=== PATIENT | female | born 1955 ===

== ENCOUNTER 2017-05-20 15:55 | Emergency (ER) | payer MEDICARE, MEDICAID ==
[2017-05-20 15:55] VITALS: BMI 37.6
[2017-05-20 16:10] VITALS: BP 94/62; PULSE 80; RESP 18; TEMP 97.8; O2SAT 97
--- NOTE | 2017-05-20 16:57 | C.PDOC ---
History Of Present Illness 61 year old female, whose PMHx includes HTN, Hyperlipidemia, Arthritis, Osteopenia and Gout, presents to the ED for evaluation of sore throat which began last evening. She notes her pain is constant and worse when swallowing. Patient admits to positive sick contact with her sister, who also had similar symptoms. Patient denies fever, chills, runny nose, sneezing, cough, itchy eyes , chest pain, shortness of breath, URI symptoms at this time. Time Seen by Provider: 05/20/17 16:14 Chief Complaint (Nursing): ENT Problem History Per: Patient History/Exam Limitations: no limitations Onset/Duration Of Symptoms: Hrs Current Symptoms Are (Timing): Still Present Location Of Pain: Throat Sick Contacts (Context): Family Member(s) (sister ) Associated Symptoms: Sore Throat. denies: Fever, Chills, Cough, Nasal Congestion Additional History Per: Patient Past Medical History Reviewed: Historical Data, Nursing Documentation, Vital Signs Vital Signs: Last Vital Signs Temp 97.8 F 05/20/17 16:08 Pulse 80 05/20/17 16:08 Resp 18 05/20/17 16:08 BP 94/62 L 05/20/17 16:08 Pulse Ox 97 05/21/17 00:37 - Medical History PMH: Arthritis, Asthma (NO MEDS PER PT NEVER HOSPITALIZED), Gall Bladder Disease , HTN, Osteoporosis Surgical History: Cholecystectomy, Endoscopy - Social History Hx Tobacco Use: No Hx Alcohol Use: No Hx Substance Use: No - Immunization History Hx Tetanus Toxoid Vaccination: No Hx Influenza Vaccination: No Hx Pneumococcal Vaccination: No Review Of Systems Constitutional: Negative for: Fever, Chills ENT: Positive for: Throat Pain Cardiovascular: Negative for: Chest Pain Respiratory: Negative for: Cough, Shortness of Breath Physical Exam - Physical Exam Appears: Non-toxic, No Acute Distress Skin: Normal Color, Warm, Dry Head: Atraumatic, Normacephalic Eye(s): bilateral: Normal Inspection Ear(s): Bilateral: Normal Nose: Normal, No Discharge Oral Mucosa: Moist Tongue: Normal Appearing, No Swelling Throat: Other (tonsillar swelling noted. uvula at midline. no stridor. able to tolerate PO intake ) Neck: Normal ROM, Supple Chest: Symmetrical, No Deformity, No Tenderness Cardiovascular: Rhythm Regular, No Murmur Respiratory: Normal Breath Sounds, No Rales, No Rhonchi, No Wheezing Extremity: Normal ROM, Capillary Refill (less than 2 seconds ) Neurological/Psych: Oriented x3, Normal Speech, Normal Cognition Gait: Steady ED Course And Treatment O2 Sat by Pulse Oximetry: 97 (on RA) Pulse Ox Interpretation: Normal Disposition Counseled Patient/Family Regarding: Diagnosis, Need For Followup, Rx Given - Disposition Referrals: YOUR,PMD [Other] Disposition: HOME/ ROUTINE Disposition Time: 17:08 Condition: GOOD Prescriptions: Dexamethasone 12 mg PO ONCE #2 tab Ibuprofen [Motrin] 600 mg PO Q6 #30 tab Instructions: Pharyngitis (ED) Forms: [employer] (Mozambican) Print Language: GEORGIAN - Clinical Impression Clinical Impression: Pharyngitis - Scribe Statement The provider has reviewed the documentation as recorded by the Scribe (Jemma Shabazz) Provider Attestation: All medical record entries made by the Scribe were at my direction and personally dictated by me. I have reviewed the chart and agree that the record accurately reflects my personal performance of the history, physical exam, medical decision making, and the department course for this patient. I have also personally directed, reviewed, and agree with the discharge instructions and disposition.
== END 2017-05-20 17:31 | disposition home or self-care (01) ==
LOC: C.ER 15:55
DX: J02.9 Acute pharyngitis, unspecified (principal); I10 Essential (primary) hypertension; E78.5 Hyperlipidemia, unspecified; M19.90 Unspecified osteoarthritis, unspecified site

== ENCOUNTER 2018-10-05 14:12 | Emergency (ER) | payer MEDICARE, MEDICAID ==
[2018-10-05 14:12] VITALS: BMI 37.6
[2018-10-05 14:24] VITALS: BP 162/82; PULSE 78; TEMP 98.3
--- NOTE | 2018-10-05 15:27 | C.PDOC ---
History Of Present Illness 63 year old female presents to the emergency department with complaints of pain to her right elbow status-post falling 1 week ago and landing on her right arm. Patient states that she has taken Motrin for the pain with no relief. Patient states that she has been able to move her elbow but has pain with ROM. Patient has a PMHx of HTn, arthritis, and asthma. Patient's PSHx is negative, and her FHx includes asthma. Time Seen by Provider: 10/05/18 15:12 Chief Complaint (Nursing): Upper Extremity Problem/Injury History Per: Patient History/Exam Limitations: no limitations Onset/Duration Of Symptoms: Other (1 week) Current Symptoms Are (Timing): Still Present Quality: "Pain" Exacerbating Factor(s): Movement Past Medical History Reviewed: Historical Data, Nursing Documentation, Vital Signs Vital Signs: Last Vital Signs Temp 98.3 F 10/05/18 14:21 Pulse 78 10/05/18 14:21 Resp 20 10/05/18 14:21 BP 162/82 H 10/05/18 14:21 Pulse Ox 98 10/05/18 14:21 - Medical History PMH: Arthritis, Asthma (NO MEDS PER PT NEVER HOSPITALIZED), Gall Bladder Disease, HTN, Osteoporosis Denies: Chronic Kidney Disease Surgical History: Cholecystectomy, Endoscopy Family History: States: Unknown Family Hx - Social History Hx Tobacco Use: No Hx Alcohol Use: No Hx Substance Use: No - Immunization History Hx Tetanus Toxoid Vaccination: No Hx Influenza Vaccination: Yes Hx Pneumococcal Vaccination: Yes Review Of Systems Except As Marked, All Systems Reviewed And Found Negative. Constitutional: Negative for: Fever, Chills Gastrointestinal: Negative for: Nausea, Vomiting, Abdominal Pain, Diarrhea Musculoskeletal: Positive for: Arm Pain (right elbow) Neurological: Negative for: Weakness, Numbness Physical Exam - Physical Exam Appears: Non-toxic, No Acute Distress Skin: Normal Color, Warm, Dry Head: Atraumatic, Normacephalic Eye(s): bilateral: Normal Inspection, PERRL, EOMI Neck: Normal, Supple Cardiovascular: Rhythm Regular, No Murmur Respiratory: Normal Breath Sounds, No Rales, No Rhonchi, No Wheezing Extremity: Normal ROM (ROM intact with pain. ), Tenderness (tenderness to proximal radius), Swelling (mild swelling of right elbow) Neurological/Psych: Oriented x3, Normal Speech, Normal Cognition ED Course And Treatment O2 Sat by Pulse Oximetry: 98 (RA) Pulse Ox Interpretation: Normal - Other Rad XR Right Elbow X-Ray: Viewed By Me, Read By Radiologist Interpretation: IMPRESSION: No evidence of acute fracture or dislocation. Small joint effusion is noted. XR Right Forearm X-Ray: Viewed By Me, Read By Radiologist Interpretation: IMPRESSION: No evidence of acute fracture or dislocation. Possible small right elbow joint effusion. Medical Decision Making Medical Decision Making: initial impression: right elbow sprain vs fracture Initial Plan: Motrin 600mg PO Tylenol 975mg PO XR Right Elbow XR Right Forearm XR Right Wrist Disposition - Disposition Referrals: Avila Ontiveros III, MD [Staff Provider] - Disposition: HOME/ ROUTINE Disposition Time: 16:18 Condition: STABLE Additional Instructions: Ms. Servin, thank you for letting us take care of you today. Return to the ER if your symptoms worsen, or if any problems. Take the medication listed below as prescribed. Follow up with the orthopedic doctor (Dr. Ontiveros) for a re-evaluation. Prescriptions: Ibuprofen [Motrin] 1 tab PO Q8 PRN #30 tab PRN Reason: Pain, Moderate (4-7) Instructions: Elbow Sprain (DC) Forms: [employer] (Dominican) Print Language: CITIZEN OF [place] - POA Present On Arrival: None - Clinical Impression Clinical Impression: Sprain of elbow, right - Scribe Statement The provider has reviewed the documentation as recorded by the Scribe (Hamzah Hua) Provider Attestation: All medical record entries made by the Scribe were at my direction and personally dictated by me. I have reviewed the chart and agree that the record accurately reflects my personal performance of the history, physical exam, medical decision making, and the department course for this patient. I have also personally directed, reviewed, and agree with the discharge instructions and disposition.
[2018-10-05 17:14] VITALS: RESP 18
--- NOTE | 2018-10-05 17:21 | RAD ---
PROCEDURE: Radiographs of the Right Forearm HISTORY: Fell c/o right elbow pain COMPARISON: None available. TECHNIQUE: Frontal and lateral views obtained. FINDINGS: BONES: No fracture or destructive lesion. JOINT SPACES: Possible small joint effusion. OTHER FINDINGS: None. IMPRESSION: No evidence of acute fracture or dislocation. Possible small right elbow joint effusion.
--- NOTE | 2018-10-05 17:23 | RAD ---
Date of service: 10/05/2018 PROCEDURE: Radiographs of the right elbow. HISTORY: Fell c/o right elbow pain COMPARISON: No prior. FINDINGS: BONES: Normal. No fracture. JOINTS: Normal. No osteoarthritis. SOFT TISSUES: Normal. JOINT EFFUSION: Small joint effusion is noted with posterior fat pad sign. OTHER FINDINGS: None. IMPRESSION: No evidence of acute fracture or dislocation. Small joint effusion is noted.
[2018-10-05 18:19] VITALS: O2SAT 98
--- NOTE | 2018-10-05 19:26 | RAD ---
Date of service: 10/05/2018 PROCEDURE: Right Wrist Radiographs. HISTORY: Fell c/o right arm pain COMPARISON: None. FINDINGS: BONES: Normal. No fracture. JOINTS: Normal. No dislocation. SOFT TISSUES: Normal. OTHER FINDINGS: None. IMPRESSION: No evidence of acute fracture or dislocation.
== END 2018-10-05 17:00 | disposition home or self-care (01) ==
LOC: C.ER 14:12
DX: S53.401A Unspecified sprain of right elbow, initial encounter (principal); W18.30XA Fall on same level, unspecified, initial encounter

== ENCOUNTER 2018-10-25 12:22 | Emergency (ER) | payer MEDICARE, MEDICAID ==
[2018-10-25 12:22] VITALS: BMI 37.6
[2018-10-25 12:32] VITALS: O2SAT 99
[2018-10-25 14:47] LABS: BASO % 0.5 % (0.0-2.0); EOS # 0.1 K/uL (0.0-0.7); EOS % 1.2 % (0.0-4.0); HEMOGLOBIN 11.6 g/dL (11.0-16.0); LYMPH # 2.5 K/uL (1.0-4.3); LYMPH % 37.6 % (20.0-40.0); MEAN CELL VOLUME 88.6 fL (81.0-99.0); MEAN CORPUSCULAR HEMOGLOBIN 29.8 pg (27.0-31.0); MEAN CORPUSCULAR HGB CONC 33.6 g/dL (33.0-37.0); MEAN PLATELET VOLUME 10.6 fL (7.2-11.7); MONO % 15.1 % (0.0-10.0); NEUT % 45.6 % (50.0-75.0); NRBC % 0.1 % (0.0-2.0); RBC 3.89 Mil/uL (3.80-5.20); RED CELL DISTRIBUTION WIDTH 13.9 % (11.5-14.5); WHITE BLOOD COUNT 6.5 K/uL (4.8-10.8)
[2018-10-25 15:03] LABS: BLOOD UREA NITROGEN 18 mg/dL (7-17); CALCIUM 9.8 mg/dl (8.6-10.4); GFR NON-AFRICAN AMERICAN > 60
[2018-10-25 15:05] LABS: ALT/SGPT < 6 U/L (9-52); AST/SGOT 48 U/L (14-36)
[2018-10-25 15:14] LABS: URINE BILIRUBIN NEGATIVE (NEGATIVE); URINE BLOOD 1+ (NEGATIVE); URINE CLARITY Clear (Clear); URINE COLOR Yellow (YELLOW); URINE GLUCOSE (UA) NORMAL (Normal); URINE PROTEIN NEGATIVE (NEGATIVE)
[2018-10-25 15:15] LABS: SQUAMOUS EPITHIAL 2 /hpf (0-5); URINE BACTERIA RARE (<OCC); URINE LEUKOCYTE ESTERASE NEG Leu/uL (Negative); URINE UROBILINOGEN NORMAL mg/dL (0.2-1.0)
[2018-10-25 15:59] LABS: INR 1.2; PROTHROMBIN TIME 13.2 SECONDS (9.7-12.2)
--- NOTE | 2018-10-25 16:35 | RAD ---
Date of service: 10/25/2018 PROCEDURE: Radiographs of the Lumbar Spine. HISTORY: pain COMPARISON: No prior. TECHNIQUE: 5 views obtained. FINDINGS: BONES: Normal alignment. No listhesis. No fracture. DISC SPACES: Narrowing of the intervertebral disc is space at L3-L4-L4-L5 and L5-S1 associated with severe degenerative changes. OTHER FINDINGS: None. IMPRESSION: Severe degenerative changes at the lower lumbar spine.
--- NOTE | 2018-10-25 16:38 | RAD ---
Date of service: 10/25/2018 PROCEDURE: AP pelvis and oblique right hip views HISTORY: atraumatic pain COMPARISON: No prior TECHNIQUE: AP view and oblique view of the right hip were obtained. FINDINGS: No evidence of acute fracture or dislocation. Mild osteoarthritic changes. IMPRESSION: As above.
--- NOTE | 2018-10-25 16:40 | RAD ---
Date of service: 10/25/2018 PROCEDURE: Right Foot Radiographs. HISTORY: atraumatic pain COMPARISON: Comparison is made with 12/24/2015 TECHNIQUE: 3 views obtained. FINDINGS: BONES: Normal. No fracture. JOINTS: Arthritic degenerative changes. SOFT TISSUES: Normal. OTHER FINDINGS: None. IMPRESSION: Dense of acute fracture or dislocation.
--- NOTE | 2018-10-25 16:44 | C.PDOC ---
History Of Present Illness 63 y/o female comes in complaining of pain to her lower back, radiating to her right hip, thigh, and foot since 2 days ago. Patient denies any injuries and states she had similar pain like this from before. She reports she has been taking motrin without relief. Patient also complains that she has rectal bleeding with bowel movement. Patient was seen by her PMD who told her that she has hemorrhoid and to use cream. Patient reports she has been using the cream, but the rectal bleeding comes and goes. She denies any rectal pain. Time Seen by Provider: 10/25/18 12:35 Chief Complaint (Nursing): Lower Extremity Problem/Injury History Per: Patient History/Exam Limitations: no limitations Onset/Duration Of Symptoms: Days Current Symptoms Are (Timing): Still Present Past Medical History Reviewed: Historical Data, Nursing Documentation, Vital Signs Vital Signs: Last Vital Signs Temp 98.3 F 10/25/18 13:34 Pulse 65 10/25/18 13:34 Resp 16 10/25/18 13:34 BP 169/89 H 10/25/18 13:34 Pulse Ox 99 10/25/18 13:34 - Medical History PMH: Arthritis, Asthma (NO MEDS PER PT NEVER HOSPITALIZED), Gall Bladder Disease, HTN, Osteoporosis Denies: Chronic Kidney Disease Surgical History: Cholecystectomy, Endoscopy Family History: States: No Known Family Hx - Social History Hx Tobacco Use: No Hx Alcohol Use: No Hx Substance Use: No - Immunization History Hx Tetanus Toxoid Vaccination: No Hx Influenza Vaccination: Yes Hx Pneumococcal Vaccination: Yes Review Of Systems Except As Marked, All Systems Reviewed And Found Negative. Constitutional: Negative for: Fever, Chills Cardiovascular: Negative for: Chest Pain Respiratory: Negative for: Shortness of Breath Gastrointestinal: Positive for: Other (Rectal bleeding). Negative for: Nausea, Vomiting, Abdominal Pain Musculoskeletal: Positive for: Back Pain (lower back) Physical Exam - Physical Exam Appears: Non-toxic, No Acute Distress Skin: Warm, Dry Head: Atraumatic, Normacephalic Eye(s): bilateral: Normal Inspection Oral Mucosa: Moist Neck: Supple Cardiovascular: Rhythm Regular, No Murmur Respiratory: Normal Breath Sounds, No Rales, No Rhonchi, No Wheezing Rectal: Hemorrhoids (has external hemorrhoids, no bleeding), Other (has internal hemorrhoid, positive blood, no anemia) Extremity: No Deformity Extremity: Bilateral: Normal ROM Neurological/Psych: Oriented x3, Normal Speech, Normal Motor, Normal Sensation ED Course And Treatment - Laboratory Results Result Diagrams: 10/25/18 14:42 10/25/18 14:42 Lab Results: PT 13.2 SECONDS (9.7-12.2) H 10/25/18 15:42 INR 1.2 10/25/18 15:42 APTT 35 SECONDS (21-34) H 10/25/18 15:42 Total Bilirubin 1.0 mg/dL (0.2-1.3) 10/25/18 14:42 AST 48 U/L (14-36) H 10/25/18 14:42 ALT < 6 U/L (9-52) L 10/25/18 14:42 Alkaline Phosphatase 81 U/L (38-126) 10/25/18 14:42 Total Protein 8.1 g/dL (6.3-8.3) 10/25/18 14:42 Albumin 4.0 g/dL (3.5-5.0) 10/25/18 14:42 Globulin 4.1 gm/dL (2.2-3.9) H 10/25/18 14:42 Albumin/Globulin Ratio 1.0 (1.0-2.1) 10/25/18 14:42 Urine Color Yellow (YELLOW) 10/25/18 15:05 Urine Clarity Clear (Clear) 10/25/18 15:05 Urine pH 5.0 (5.0-8.0) 10/25/18 15:05 Ur Specific [place] 1.011 (1.003-1.030) 10/25/18 15:05 Urine Protein Negative mg/dL (NEGATIVE) 10/25/18 15:05 Urine Glucose (UA) Normal mg/dL (Normal) 10/25/18 15:05 Urine Ketones Negative mg/dL (NEGATIVE) 10/25/18 15:05 Urine Blood 1+ (NEGATIVE) H 10/25/18 15:05 Urine Nitrate Negative (NEGATIVE) 10/25/18 15:05 Urine Bilirubin Negative (NEGATIVE) 10/25/18 15:05 Urine Urobilinogen Normal mg/dL (0.2-1.0) 10/25/18 15:05 Ur Leukocyte Esterase Neg Bryant/uL (Negative) 10/25/18 15:05 Urine WBC (Auto) 1 /hpf (0-5) 10/25/18 15:05 Urine RBC (Auto) < 1 /hpf (0-3) 10/25/18 15:05 Ur Squamous Epith Cells 2 /hpf (0-5) 10/25/18 15:05 Urine Bacteria Rare (<OCC) 10/25/18 15:05 O2 Sat by Pulse Oximetry: 99 (RA) Pulse Ox Interpretation: Normal - Other Rad Foot XR X-Ray: Read By Radiologist Interpretation: FINDINGS: BONES: Normal. No fracture. JOINTS: Arthritic degenerative changes. SOFT TISSUES: Normal. OTHER FINDINGS: None. IMPRESSION: Dense of acute fracture or dislocation. Hip/Pelvis XR X-Ray: Read By Radiologist Interpretation: FINDINGS: No evidence of acute fracture or dislocation. Mild osteoarthritic changes. IMPRESSION: As above. Lumbar Spine XR X-Ray: Read By Radiologist Interpretation: FINDINGS: BONES: Normal alignment. No listhesis. No fracture. DISC SPACES: Narrowing of the intervertebral disc is space at L3-L4-L4-L5 and L5-S1 associated with severe degenerative changes. OTHER FINDINGS: None. IMPRESSION: Severe degenerative changes at the lower lumbar spine. Progress Note: Labs and UA sent. XR ordered for LS spine, right hip, and right foot. LS spine shows degenerative disease, L3-L4 and L4-L5. Patient will be given medications for the pain. On re-evaluation p-atient feels better, ambulatory, no neuro deficict. Patient is stable to be d/c home with PMD follow up. Disposition - Disposition Referrals: Trevor Proctor MD [Staff Provider] - Disposition: HOME/ ROUTINE Disposition Time: 17:07 Condition: STABLE Additional Instructions: Follow up with PMD and Tea Bag Machine Tender within 1-2 days. Return to ED immediately if feel worse. Prescriptions: Hard Fat/Phenylephrine Wilson [Anusol Suppository] 1 sup RC TID #20 sup Docusate Sodium [Colace] 100 mg PO BID #30 capsule Lidocaine 5% [Lidoderm] 1 patch TP DAILY #30 patch Hydrocortisone-Pramoxine 1%-1% [Proctofoam-Hc 1%-1%] 1 appl TP 5XD #1 aer Methocarbamol [Robaxin-750] 750 mg PO TID #30 tab traMADol/Acetaminophen [Ultracet 325 MG-37.5 MG] 1 tab PO Q6 PRN #30 tab PRN Reason: Pain Instructions: Hemorrhoids (DC), Radiculopathy (DC), Bloody Stools, Adult (DC) Forms: [employer] (Latvian) Print Language: LATVIAN - Clinical Impression Clinical Impression: Lumbar radiculopathy, Rectal bleeding, External hemorrhoid - PA / LAUNCHMAN / Resident Statement MD/DO has reviewed & agrees with the documentation as recorded. - Scribe Statement The provider has reviewed the documentation as recorded by the Scriblorenzo Noonan All medical record entries made by the Portillo were at my direction and personally dictated by me. I have reviewed the chart and agree that the record accurately reflects my personal performance of the history, physical exam, medical decision making, and the department course for this patient. I have also personally directed, reviewed, and agree with the discharge instructions and disposition.
[2018-10-25] MEDS ORDERED: Lidocaine 5% Patch TD STA (17:03)
[2018-10-25] MEDS ORDERED: Lidocaine 5% Patch TD ONE (17:26)
[2018-10-25 17:30] VITALS: BP 147/78; PULSE 75; RESP 17; TEMP 98.6
== END 2018-10-25 17:30 | disposition home or self-care (01) ==
LOC: C.ER 12:22
DX: M54.16 Radiculopathy, lumbar region (principal); K64.4 Residual hemorrhoidal skin tags; K62.5 Hemorrhage of anus and rectum; I10 Essential (primary) hypertension
CPT/HCPCS: 72100; 73502; 73630; 80053; 81001; 85025; 85610; 85730; 96372; 99285; G0328; J1885

== ENCOUNTER 2018-12-01 14:39 | Emergency (ER) | payer MEDICARE, MEDICAID ==
[2018-12-01 14:40] VITALS: BMI 37.6
[2018-12-01 14:50] VITALS: BP 145/74; PULSE 83; RESP 18; TEMP 98.4; O2SAT 95
--- NOTE | 2018-12-01 15:14 | C.PDOC ---
History Of Present Illness 63 y/o female,w/PMhx of osteoporosis and osteoarthritis, brought to ER by ambulance for evaluation of right hip pain which began last night. Patient states that there is no radiation of the pain. Patient reports that she has pain with walking. She has been prescribed Flexeril, Tramadol, Ultracet, and Robaxin for pain in the past. Patient denies having falls, trauma, fever,chills, nausea, vomiting, abdominal pain, back pain, and bowel/ bladder dysfunction. Time Seen by Provider: 12/01/18 14:42 Chief Complaint (Nursing): Hip Pain History Per: Patient History/Exam Limitations: no limitations Onset/Duration Of Symptoms: Days Current Symptoms Are (Timing): Still Present Severity: Moderate Past Medical History Reviewed: Historical Data, Nursing Documentation, Vital Signs Vital Signs: Last Vital Signs Temp 98.4 F 12/01/18 14:46 Pulse 83 12/01/18 14:46 Resp 18 12/01/18 14:46 BP 145/74 12/01/18 14:46 Pulse Ox 95 12/01/18 14:46 Primary Care Provider: Sandra Weaver - Medical History PMH: Arthritis, Asthma (NO MEDS PER PT NEVER HOSPITALIZED), Gall Bladder Disease, HTN, Osteoporosis Denies: Chronic Kidney Disease Surgical History: Cholecystectomy, Endoscopy Family History: States: No Known Family Hx - Social History Hx Tobacco Use: No Hx Alcohol Use: No Hx Substance Use: No - Immunization History Hx Tetanus Toxoid Vaccination: No Hx Influenza Vaccination: Yes Hx Pneumococcal Vaccination: Yes Review Of Systems Except As Marked, All Systems Reviewed And Found Negative. Constitutional: Negative for: Fever, Chills Gastrointestinal: Negative for: Nausea, Vomiting, Abdominal Pain Genitourinary: Negative for: Dysuria, Incontinence, Hematuria Musculoskeletal: Positive for: Other (right hip pain). Negative for: Back Pain Neurological: Negative for: Weakness, Numbness Physical Exam - Physical Exam Appears: Non-toxic, No Acute Distress Skin: Normal Color, Warm, Dry Head: Atraumatic, Normacephalic Eye(s): bilateral: Normal Inspection Nose: Normal Oral Mucosa: Moist Neck: Supple Chest: Symmetrical Cardiovascular: Rhythm Regular Respiratory: Normal Breath Sounds, No Rales, No Rhonchi, No Wheezing Extremity: Normal ROM, Tenderness (tenderness to right hip), No Swelling Neurological/Psych: Oriented x3, Normal Speech, Normal Motor, Normal Sensation ED Course And Treatment O2 Sat by Pulse Oximetry: 95 (RA) Pulse Ox Interpretation: Normal - Other Rad X-Ray-Hip X-Ray: Viewed By Me, Read By Radiologist Interpretation: PROCEDURE: Right Hip Radiographs. HISTORY: Pain. COMPARISON: None. TECHNIQUE: 2 views obtained. FINDINGS: BONES: Pelvic ring is intact. There is no acute displaced fracture or bone destruction. Bone alignment is. There is mild diffuse bone demineralization. JOINTS: The hip joint spaces are preserved. There is moderate degenerative osteoarthrosis in the sacroiliac joints and moderate or cystitis pubis. SOFT TISSUES: Normal. OTHER FINDINGS: None. IMPRESSION: No acute displaced fracture or dislocation. No significant degenerative osteoarthrosis in the hip joints. Moderate degenerative osteoarthrosis in the sacroiliac joints and moderate osteitis pubis. Medical Decision Making Medical Decision Making: Plan: --Toradol IM --X-Ray-Hip Updates: On re-evaluation, patient states that she feels better. I discussed X-Ray results with patient. Patient has been discharged and instructed to follow up with her PMD. Disposition Counseled Patient/Family Regarding: Studies Performed, Diagnosis - Disposition Referrals: Sandra Weaver MD [Medical Doctor] - Disposition: HOME/ ROUTINE Disposition Time: 16:59 Condition: IMPROVED Additional Instructions: VALERI MAURER, thank you for letting us take care of you today. Your provider was Sangeeta Vazquez MD and you were treated for RT HIP PAIN. The emergency medical care you received today was directed at your acute symptoms. If you were prescribed any medication, please fill it and take as directed. It may take several days for your symptoms to resolve. Return to the Emergency Department if your symptoms worsen, do not improve, or if you have any other problems. Necesita hacer jack demetria con dewitt doctor en 1-2 jeff. Vuelve a la emergencia si se siente peor. Bring any paperwork you were given at discharge with you along with any medications you are taking to your follow up visit. Our treatment cannot replace ongoing medical care by a primary care provider outside of the emergency department. Thank you for allowing the [facility] team to be part of your care today. Instructions: Osteoarthritis (DC), Hip Pain (DC) Forms: Gen Discharge Inst Amharic, [facility] [employer] (Amharic) Print Language: MOZAMBICAN - POA Present On Arrival: None - Clinical Impression Clinical Impression: Hip pain, Osteoarthritis - Scribe Statement The provider has reviewed the documentation as recorded by the Susaniblorenzo Silva Provider Attestation: All medical record entries made by the Susaniblorenzo were at my direction and personally dictated by me. I have reviewed the chart and agree that the record accurately reflects my personal performance of the history, physical exam, medical decision making, and the department course for this patient. I have also personally directed, reviewed, and agree with the discharge instructions and disposition.
--- NOTE | 2018-12-01 16:45 | RAD ---
PROCEDURE: Right Hip Radiographs. HISTORY: Pain COMPARISON: None. TECHNIQUE: 2 views obtained. FINDINGS: BONES: Pelvic ring is intact. There is no acute displaced fracture or bone destruction. Bone alignment is. There is mild diffuse bone demineralization. JOINTS: The hip joint spaces are preserved. There is moderate degenerative osteoarthrosis in the sacroiliac joints and moderate or cystitis pubis. SOFT TISSUES: Normal. OTHER FINDINGS: None. IMPRESSION: No acute displaced fracture or dislocation No significant degenerative osteoarthrosis in the hip joints. Moderate degenerative osteoarthrosis in the sacroiliac joints and moderate osteitis pubis.
== END 2018-12-01 17:18 | disposition home or self-care (01) ==
LOC: C.ER 14:39
DX: M25.551 Pain in right hip (principal); M47.898 Other spondylosis, sacral and sacrococcygeal region
CPT/HCPCS: 73502; 96372; 99284; J1885